=== PATIENT | female | born 1960 | race Caucasian/White ===

== ENCOUNTER → 2016-07-02 16:21 | Outpatient (CLI) | payer OTHER ==
[2015-01-04 07:51] VITALS: BMI 30.3
[~2016-07-02 16:21] MED LIST: DILAUDID2 MG PO; OMEPRAZOLE40 MG PO; PEPCID40 MG PO
== END | disposition home or self-care (01) ==
LOC: D.MAMMO 08:30
DX: N64.4 Mastodynia (principal)

== ENCOUNTER → 2016-08-09 07:28 | Outpatient (CLI) | payer MEDICAID ==
[2015-01-04 07:51] VITALS: BMI 30.3
== END | disposition home or self-care (01) ==
LOC: D.CT 07:28
DX: R05 Cough (principal); R07.9 Chest pain, unspecified

== ENCOUNTER → 2017-05-24 07:43 | Outpatient (CLI) | payer MEDICAID ==
[2015-01-04 07:51] VITALS: BMI 30.3
== END | disposition home or self-care (01) ==
LOC: D.RT 07:43
DX: R91.1 Solitary pulmonary nodule (principal); J44.9 Chronic obstructive pulmonary disease, unspecified

== ENCOUNTER → 2017-11-19 08:39 | Outpatient (CLI) | payer MEDICAID ==
[2015-01-04 07:51] VITALS: BMI 30.3
== END | disposition home or self-care (01) ==
LOC: D.RT 08:39
DX: R91.1 Solitary pulmonary nodule (principal)

== ENCOUNTER → 2018-01-09 08:36 | Outpatient (CLI) | payer MEDICAID ==
[2015-01-04 07:51] VITALS: BMI 30.3
== END | disposition home or self-care (01) ==
LOC: D.MRI 08:00
DX: M54.5 Low back pain (principal)

== ENCOUNTER → 2018-02-11 16:34 | Outpatient (CLI) | payer MEDICAID ==
[2015-01-04 07:51] VITALS: BMI 30.3
== END | disposition home or self-care (01) ==
LOC: D.MAMMO 02-04 09:30
DX: Z12.31 Encounter for screening mammogram for malignant neoplasm of breast (principal)

== ENCOUNTER → 2018-11-28 11:31 | Outpatient (CLI) | payer MEDICAID ==
[2015-01-04 07:51] VITALS: BMI 30.3
[~2018-11-28 11:31] MED LIST changes: +CRESTOR10 MG PO; +CYMBALTA60 MG PO; +FLUTICASONE PRO16 GM NASAL; +HYDROCODONE-A1 UDTA2 PO; +PERCOCET 10-321 EAC1 PO; +SYMBICORT 16010.2 GM INH; +VOLTAREN100 GM TOPICAL
== END | disposition home or self-care (01) ==
LOC: D.HCCECHO 11:30
PROVIDERS: ATTEND Internal Medicine Interventional Cardiology
DX: I20.9 Angina pectoris, unspecified (principal)

== ENCOUNTER → 2018-12-01 11:43 | Outpatient (CLI) | payer MEDICAID ==
[2015-01-04 07:51] VITALS: BMI 30.3
--- NOTE | 2018-12-11 13:30 | ST ---
PATIENT:CHAPINCITO PHILLIPS MEDICAL RECORD: [id number] SEX: F LOCATION:[facility] ORDER #: ADMISSION DATE: 12/01/18 AGE OF PATIENT: 58 REFERRING PHYSICIAN: INTERPRETING PHYSICIAN: MERLYN ANTONIO MD DATE OF SERVICE: 12/01/2018 Nuclear stress test. INDICATION: Angina, abnormal ECG, hyperlipidemia, smoking history. TECHNIQUE: The patient was exercised on standard Lexiscan protocol with 33 mCi of sestamibi injected at peak stress, 11 mCi used previously for rest images. FINDINGS: Gated SPECT reveals preserved ejection fraction at 72% with good wall motioning and thickening and brightening throughout all segments. SPECT imaging Cardiolite was used as myocardial perfusion agent. There is reversibility anteriorly and apically. This includes the basal, mid, apical anterior segments as well as the entire apex itself. The degree of reversibility is moderate. The amount of myocardial involved is moderate to large. OVERALL IMPRESSION: This is an intermediate to high risk nuclear stress test with a oztttent-qz-[id number] amount of myocardium involved with ischemia anteriorly and apically suggestive of hemodynamically significant coronary artery disease. TRANSINT:[id number] Voice Confirmation ID: [id number] DOCUMENT ID: [id number] MERLYN ANTONIO MD at 1330 CC: PETAR MUNOZ MD [id number] DICTATION DATE: 12/03/18 1207 IRONWORKER HELPER SHOP: 12/04/18 0704 DEP CLI 12/01/18 [facility] [address] [place] [address]
== END | disposition home or self-care (01) ==
LOC: D.HCCARDIO 11:43
PROVIDERS: ATTEND Internal Medicine Interventional Cardiology
DX: I20.9 Angina pectoris, unspecified (principal)

== ENCOUNTER 2018-12-02 07:44 | Day surgery (SDC) | payer MEDICAID ==
[~2018-12-02] VITALS: Ht 165.1 cm; Wt 76.2 kg
[~2018-12-02 07:44] MED LIST changes: -PERCOCET 10-321 EAC1 PO
[2018-12-02 08:03] LABS: HEMATOCRIT 39.4 % (36.0-48.0); HEMOGLOBIN 13.2 g/dL (12-16); MCH 31.1 pg (26.0-34.0); MCHC 33.5 g/dL (31.0-37.0); MCV 92.9 fL (80.0-100.0); MEAN PLATELET VOLUME 10.4 fL (7.4-10.4); RBC 4.24 10x6/uL (4.00-5.40); RDW 13.5 % (11.5-14.5); WBC 5.9 10x3/uL (4.8-10.8)
[2018-12-02 08:43] VITALS: BP 122/70; Ht 165.1 cm; Wt 76.2 kg
--- NOTE | 2018-12-02 09:43 | NUR ---
0900 SPOKE WITH SARA WITH [facility] AND PT. STATES WHEN SHE WAS 14 SHE HAD A THOUGHT OF HARMING HERSELF BUT DID NOT DO ANYTHING ABOUT IT AND HAS NOT SINCE, THEN. SHE STATES SHE WILL SPEAK WITH HER PEOPLE BUT PT IS OKAY FOR SURGERY AND WILL NOT BE DELAYED FOR SURGERY TODAY.
[2018-12-02] MEDS ORDERED: PERCOCET 10-321 EAC1 PO (11:10)
--- NOTE | 2018-12-02 11:18 | NUR ---
1115 DR. SOTO ROUNDS WITH FAMILY.
--- NOTE | 2018-12-02 12:37 | NUR ---
DR. KAMARA NOTIFIED AND REVIEWED PT'S BEHAVIOR AND ASSESSMENT RESULTS. PT IS A LOW RISK PER DR. KAMARA. DR. KAMARA STATED TO GIVE RESOURCES TO PT AT TIME OF DISCHARGE. NO FURTHER ORDERS AT THIS TIME. RESOURCES REVIEWED WITH PT AND SHE VERBALIZED UNDERSTANDING.
--- NOTE | 2018-12-02 13:42 | OP ---
PATIENT NAME: CHAPINCITO PHILLIPS MEDICAL RECORD: [id number] :62 LOCATION:[facility] ADMISSION DATE: SURGEON: KODAK SOTO DO DATE OF OPERATION: 12/02/2018 PROCEDURE PERFORMED: Left knee lysis of adhesions and manipulation under anesthesia. 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 POSTOPERATIVE DIAGNOSIS: Left knee contracture after a patellar fracture. INDICATIONS: Ms. Phillips had a patellar fracture approximately 9 to 10 months ago. She was treated at another hospital. She did not do therapy and developed a knee contracture. She could only flex to about 60 to 70 degrees. She went through several rounds of therapy with no avail and she wants something done. I told her we can do it through the scope, I would hope, and take down the adhesions and that she was at risk for fracture, tearing of the tendons, patellar tendon and the quad tendon, and need for further surgery, and that she would have to work very hard to keep the motion. She was aware of that and aware of the risk of infection, bleeding, damage to nerves and vessels, need for further surgery, blood clots, and even and she signed the consent. SURGEON: Kodak Soto DO DESCRIPTION OF PROCEDURE: The patient was taken to operative suite, laid in supine position, given general anesthetic and LMA was placed. Left lower extremity was prepped and draped in sterile fashion, given 2 grams Ancef preoperatively. The timeout had been performed. Everyone was in agreeance with the correct side, site, patient and procedure. The incision was then was made over the lateral portal in the anterior knee. The knee was entered with a trocar and then the camera entered and severe adhesions were noted in the suprapatellar pouch as well as along the patellar tendon on the back of the fat pad and on the inferior portion of the patella. The lateral gutter was inspected. Medial gutter inspected. No loose body seen in it. The medial compartment was then entered and the medial portal was established with an 18-gauge spinal needle and 11-blade scalpel. 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 The adhesions were seen to extend from the medial femoral condyle, soft tissue over to the patellar tendon or at the fat pad. The shaver was brought in and these were taken down as well as the burner was used to take more adhesions down and the shaver in the suprapatellar pouch. Once the adhesions were adequately resected, abrasion chondroplasty was performed on the patella and the medial femoral condyle. The knee was manipulated, so I could get a good release. She was only flexed to 60 degrees and I got her to flex to 125 degrees and held it. Then, entered back in the knee with the camera and took down any other adhesions that I saw. The water was turned off and the suction was turned on at that time and the knee was again manipulated back to 125 degrees. The portals were closed with 4-0 Monocryl in inverted interrupted fashion. Steri-Strips, Adaptic, 4 x 4's, ABD, Webril, Jarett wrap were then placed on the knee, GIL hose stockings up to the knee. She was awakened and taken to recovery in stable condition. BLOOD LOSS: Minimal. OPERATIVE REPORT [id number] CHAPINCITO PHILLIPS COMPLICATIONS: None. TRANSINT:[id number] Voice Confirmation ID: [id number] DOCUMENT ID: [id number] KODAK SOTO DO at 1342 CC: [id number] DICTATION DATE: 12/02/18 1108 VP PRODUCT MARKETING: 12/02/18 1314 REG [facility] [address] [place] [address]
== END 2018-12-02 13:44 | disposition home or self-care (01) ==
LOC: D.OPS 07:44
PROVIDERS: Anesthesiology; ATTEND Orthopaedic Surgery
DX: M24.562 Contracture, left knee (principal)

== ENCOUNTER 2018-12-11 11:37 | Outpatient (CLI) | payer MEDICAID ==
[~2018-12-11] VITALS: Ht 165.1 cm; Wt 84.1 kg
--- NOTE | ~2018-12-11 | HEMODYNAMI ---
PATIENT:CHAPINCITO PHILLIPS MEDICAL RECORD: [id number] : 62 LOCATION:[facility] ADMISSION DATE: 12/11/18 Generatedon:12/11/201816:33 Patient name: CHAPINCITO PHILLIPS Patient #: [id number] : 1960 Date of study: 12/11/2018 Page: Of Hemodynamic Procedure Report Patient Data Patient Demographics Procedure consent was obtained First Name: CHAPINCITO Gender: Female Last Name: ALAN : 1960 Middle Initial: C Age: 58 year(s) Patient #: [id number] Race: Unknown SSN: [id number] Additional ID: [id number] Contact details [address]: [address] [place] [address] State: [place] City: [place] Zip code: [address] Admission Admission Data Admission Date: 12/11/2018 Admission Time: 11:37 Height (in.): 65 BSA: 1.91 (m2) Height (cm.): 165.1 BMI: 30.79 (kg/m2) Weight (lbs.): 185 Weight (kg.): 83.91 Lab Results Lab Result Date: 12/11/2018 Lab Result Time: 0:00 Biochemistry Name Units Result Min Max BUN mg/dl 8 --(*---)-- 7 18 Creatinine mg/dl 0.8 --(-*--)-- 0.6 1.3 eGFR ml/min 78 *-(----)-- 90 120 NONAFRICAN CBC Name Units Result Min Max Hemoglobin g/dl 13.5 --(*---)-- 13.5 17.5 Procedure Procedure Types Cath Procedure Diagnostic Procedure [facility] w/Coronaries Procedure Description Procedure Date Procedure Date: 12/11/2018 Procedure Start Time: 16:21 Procedure End Time: 16:32 Procedure Staff Name Function Diego Calvillo MD Performing Physician Daniel Damian RT Monitor Dariel Martinez RN Nurse Haley Torres RT Scrub Procedure Data Cath Procedure Fluoroscopy Diagnostic fluoroscopy Total fluoroscopy Time: 2.4 time: 2.4 min min Diagnostic fluoroscopy Total fluoroscopy dose: 275 dose: 275 mGy mGy Contrast Material Contrast Material Type Amount (ml) Isovue 300 34 Entry Location Entry Primary Successful Side Size Upsize Upsize Entry Closure Rico ccessful Closure Location (Fr) 1 (Fr) 2 (Fr) Remarks Device Remarks Radial Right 6 Fr Mechanical artery Short Compression Estimated blood loss: 10 ml Diagnostic catheters Device Type Used For End Catheter Placement DIAGNOSTIC Cameron 110cm 5 Procedure Fr catheter ([id number]) Procedure Complications No complications Procedure Medications Medication Administration Route Dosage 0.9% NaCl I.V. 100 ml/hr Oxygen etCO2 Nasal cannula 2 l/min Heparin Flush Bag added to field 2 bags (1000units/500ml NS) Lidocaine 2% added to field 20 Radial Cocktail added to field 1 syringe (Verapamil 2mg/Nitro 400mcg/Heparin 1500units) Versed I.V. 2 mg Fentanyl I.V. 100 mcg Versed I.V. 2 mg Radial Cocktail I.A. 1 syringe (Verapamil 2mg/Nitro 400mcg/Heparin 1500units) Hemodynamics Rest BSA: 1.91 (m2) HGB: 13.5 (g/dl) O2 Consumption: Estimated: 188.12 (ml/min) O2 Co nsumption indexed: Estimated:98.49 (ml/min/m) Heart Rate: 77 (bpm) Pressure Samples Time Site Value (mmHg) Purpose Heart Use Rate(bpm) 16:27 AO 107/69(79) Snapshot 88 16:28 LV 102/3,7 Snapshot 88 16:28 AO 114/52(79) Pullback 92 16:28 LV 90/8,13 Pullback 92 Gradients Valve Time Site 1 Site 2 Mean SEP/DFP Peak To Heart Use (mmHg) (sec/min) Peak Rate (mmHg) (bpm) Aortic 16:28 LV AO 0 10 0 92 90/8,13 114/52(79) Calculations Valve P-P Mean Valve Index Valve Source Name Gradient Area Flow (cm2) Aortic 0 0 0 0 Snapshots Pre Cath Intra NCS Post Cath Vital Signs Time Heart Resp SPO2 etCO2 NIBP Rhythm Pain Sedation Rate (ipm) (%) (mmHg) (mmHg) Status Level (bpm) 16:05:54 80 18 92 0 118/76(93) NSR 0 (11) 10(A) , No pain 16:10:04 79 18 95 45.4 119/75(97) NSR 0 (11) 10(A) , No pain 16:14:14 80 19 93 44.7 121/78(99) NSR 0 (11) 10(A) , No pain 16:18:23 80 11 93 43.2 117/71(99) NSR 0 (11) 10(A) , No pain 16:22:29 78 18 94 43.9 110/77(98) NSR 0 (11) 9(A) , No pain 16:26:33 88 13 93 43.9 114/74(88) NSR 0 (11) 9(A) , No pain 16:30:41 86 10 92 46.2 116/73(97) NSR 0 (11) 10(A) , No pain Medications Time Medication Route Dose Verified Delivered Reason Notes Effectiveness by by 16:04:04 0.9% NaCl I.V. 100 Dariel Dariel Per ml/hr Juan Martinez physician RN RN 16:04:15 Oxygen etCO2 2 l/min Dariel Dariel for low 02 Nasal Lorigan Lorena sats cannula RN RN 16:04:25 Heparin Flush added 2 bags Dariel Dariel used for Bag to Juan Martinez procedure (1000units/500ml RN RN NS) 16:04:36 Lidocaine 2% added 20ml Dariel Dariel for local to vial Lorena Martinez anesthetic field HARRISON RN 16:04:46 Radial Cocktail added 1 Dariel Dariel used for (Verapamil to syringe Lalaigan Juan procedure 2mg/Nitro field HARRISON RN 400mcg/Heparin 1500units) 16:14:50 Versed I.V. 2 mg Dariel Dariel for sedation Juan Martinez RN RN 16:14:59 Fentanyl I.V. 100 mcg Dariel Dariel for sedation Juan Martinez RN RN 16:22:38 Versed I.V. 2 mg Dariel Dariel for sedation Juan Martinez RN RN 16:24:30 Radial Cocktail I.A. 1 Dariel Diego for (Verapamil syringe [facility] [place] vasodilation 2mg/Nitro CHRISTY ABAD 400mcg/Heparin 1500units) Procedure Log Time Note 15:40:41 Dariel Martinez RN sent for patient. Start room use. 15:46:38 Procedure Status Elective Heart Cath (OP). 15:46:44 Time tracking: Regular hours (M-F 7:00 - 5:00) 15:46:49 Plan of Care:Hemodynamics will remain stable., Cardiac rhythm will remain stable., Comfort level will be maintained., Respiratory function will remain adequate., Patient/ family verbilizes understanding of procedure., Procedure tolerated without complication., Recovers from procedure without complications.. 15:55:00 Patient received from Pre/Post Procedure Room to CCL 1 Alert and oriented. Tansferred to table in Supine position. 15:55:04 Signed procedure consent form obtained from patient. 15:55:05 Warm blankets applied, and jack hugger turned on for patient comfort. 15:55:05 Correct patient and procedure confirmed by team. 15:55:06 ECG and BP/O2 sat monitors applied to patient. 16:04:04 0.9% NaCl 100 ml/hr I.V. was administered by Dariel Martinez RN; Per physician; Verbal order read back and verified. 16:04:15 Oxygen 2 l/min etCO2 Nasal cannula was administered by Dariel Martinez RN; for low 02 sats; Verbal order read back and verified. 16:04:25 Heparin Flush Bag (1000units/500ml NS) 2 bags added to field was administered by Dariel Martinez RN; used for procedure; Verbal order read back and verified. 16:04:36 Lidocaine 2% 20ml vial added to field was administered by Dariel Martinez RN; for local anesthetic; Verbal order read back and verified. 16:04:46 Radial Cocktail (Verapamil 2mg/Nitro 400mcg/Heparin 1500units) 1 syringe added to field was administered by Dariel Martinez RN; used for procedure; Verbal order read back and verified. 16:04:53 Vital chart was started 16:06:46 Baseline sample Acquired. 16:06:51 Rhythm: sinus rhythm 16:06:52 Full Disclosure recording started 16:06:57 H&P Date Dictated: 12/11/2018 Within 30 days and on chart., H&P Addendum completed by physician on day of procedure. (MUST COMPLETE FOR ALL OUTPATIENTS). 16:07:29 Pre-procedure instructions explained to patient. 16:07:30 Pre-op teaching completed and patient verbalized understanding. 16:07:34 Family in waiting room. 16:07:36 Patient NPO since Midnight. 16:07:38 Is the patient allergic to Iodine/contrast media? No. 16:07:40 Is patient on blood thinner?No 16:07:46 ACC The patient was administered the following blood thiners within the last 24 hours: None 16:07:54 Patient diabetic? No. 16:07:58 Previous problem with sedation/anesthesia? No ? 16:08:00 Snore? Yes 16:08:02 Sleep apnea? No 16:08:02 Deviated septum? No 16:08:03 Opens mouth fully? Yes 16:08:04 Sticks out tongue? Yes 16:08:06 Airway obstruction? No ? 16:08:10 Dentures? Yes OUT 16:08:14 Pre procedure: right dorsailis pedis pulse 1+ Palpable, but thready & weak; easily obliterated 16:08:16 Modified Parvez's test Ulnar < 7 seconds 16:08:17 Patient pain scale 0/10 ?. 16:08:37 IV patent on arrival in right forearm with 0.9% NaCl at [facility]. 16:08:39 Lab results completed and on chart. 16:08:42 Right Radial & Right Groin area was prepped with chlora-prep and draped in sterile fashion 16:08:44 Alarms reviewed by R. N. 16:08:45 Sharps counted by scrub and verified by R.N. 16:09:27 Use device set Radial Dx or PCI 16:09:29 Tegaderm 4 x 4 (1626W) opened to sterile field. 16:09:30 ACIST Syringe (45711) opened to sterile field. 16:09:30 Medline Cath Pack ([id number]) opened to sterile field. 16:09:31 Bag Decanter (2002) opened to sterile field. 16:09:31 ACIST Hand Control (95007) opened to sterile field. 16:09:31 ACIST Manifold (47023) opened to sterile field. 16:09:32 MBrace Wrist Support ([id number]) opened to sterile field. 16:09:34 EMERALD Guide Wire (437-517) opened to sterile field. 16:09:34 SHEATH 6FR RAIN (9349808) opened to sterile field. 16:09:54 Patient Weight : 185 lbs 16:09:59 Patient Height : 65 inches 16::39 Lab Result : BUN 8 mg/dl ::39 Lab Result : Hemoglobin 13.5 g/dl 16::39 Lab Result : eGFR NONAFRICAN 78 ml/min 16::39 Lab Result : Creatinine 0.8 mg/dl 16:13:19 2) 60-89 Mildly reduced kidney function, and other findings (as for stage 1) point to kidney disease. 16:13:48 Maximum allowable contrast dose (3.7 X eGFR X 0.75)217 ml. 16:13:53 --------ALL STOP TIME OUT------ 16::54 Final Timeout: patient, procedure, and site verified with staff and physician. All members of the team are in agreement. 16:13:58 Right Radial & Right Groin site verified by team. 16:14:02 Fire Safety Assessment: A--An alcohol-based skin anteseptic being used preoperatively., C--Open oxygen or nitrous oxide is being used., D--An ESU, laser, or fiber-optic light is being used. 16:14:05 Physical assessment completed. ASA score P 2 - A patient with mild systemic disease as per Diego Calvillo MD. 16:14:50 Versed 2 mg I.V. was administered by Dariel Martinez RN; for sedation; Verbal order read back and verified. 16:14:59 Fentanyl 100 mcg I.V. was administered by Dariel Martinez RN; for sedation; Verbal order read back and verified. 16:21:20 Procedure started. 16:21:36 Local anesthetic to right radial artery with Lidocaine 2% by Diego Calvillo MD.INITIAL ACCESS ONLY 16:22:38 Versed 2 mg I.V. was administered by Dariel Martinez RN; for sedation; Verbal order read back and verified. 16:23:52 A 6 Fr Short sheath was inserted into the Right Radial artery 16:24:30 Radial Cocktail (Verapamil 2mg/Nitro 400mcg/Heparin 1500units) 1 syringe I.A. was administered by Diego Calvillo MD; for vasodilation; Verbal order read back and verified. 16:24:44 A DIAGNOSTIC Cameron 110cm 5 Fr catheter (601058) was advanced over the wire and used for Procedure. 16:27:14 LCA angiography performed. 16:27:31 RCA angiography performed. 16::53 ACCDominant side:Right 16:28:53 LV angiography performed. 16:28:55 LV gram done using MARSHALL 16:29:04 EF : 55 % 16:29:06 LV hemodynamics recorded. 16:29:10 Injector settings: Ml/sec: 5, Volume: 15, 16:29:20 Catheter removed. 16:29:23 ZEPHYR REGULAR TR BAND (116473) opened to sterile field. 16:29:37 Sheath removed intact; hemostasis achieved with Mechanical Compression to the Right Radial artery. 16:29:39 Procedure ended.(Physican Out) 16:30:21 Fluoroscopy time 02.40 minutes. 16:30:26 Flurop Dose total: 275 16:30:26 Fluoroscopy dose: 275 mGy 16:30:32 Dose Area Product 67881 mGy/cm. 16:30:41 Contrast amount:Isovue 300 34ml. 16:30:43 Maximum allowable dose exceeded? No. 16:30:44 Sharps counted by scrub and verified by R.N. 16:30:52 Jasper band inflated with 10cc of air. 16:30:54 Insertion/operative site no bleeding no hematoma. 16:30:59 Post Procedure Pulses reassessed and unchanged 16:31:02 Post-procedure physical assessment completed. ASA score P 2 - A patient with mild systemic disease as per Diego Calvillo MD. 16:31:04 Post procedure rhythm: unchanged. 16:31:07 Estimated blood loss: 10 ml 16:31:09 Post procedure instruction explained to patient.Patient verbalizes understanding. 16:31:10 Patient needs reinforcement of post procedure teaching. 16:31:38 Procedure and supply charges have been captured, reviewed, submitted and are correct. 16:31:40 Procedure Complication : No complications 16:31:58 Vital chart was stopped 16:32:02 [facility] Findings: mild to moderate CAD (<70%) 16:32:05 Operative report dictated upon procedure completion. 16:32:05 See physician's report for complete and final results. 16:32:09 Report given to Pre/Post Procedure Room. 16:32:13 Patient transfered to Pre/Post Procedure Room with Stretcher. 16:32:15 Procedure ended. 16:32:15 Full Disclosure recording stopped 16:33:29 End room use (Document Last) Device Usage Item Name Manufacture Quantity Catalog Hospital Part Current Minima l Lot# / Number Charge Number Stock Stock Serial# Code Tegaderm 4 3M 1 1626W [id number] 193886 5 x 4 (1626W) ACIST Acist 1 43660 002635 551559 [id number] 20 Syringe Medical (76982) Systems Inc Medline Medline 1 [id number] 669507 46025 156762 5 Cath Pack ([id number]) Bag Microtek 1 2001S 398978 33560 328627 5 Decanter Medical Inc. (2001S) ACIST Hand Acist 1 86243 990429 277573 694960 5 Control Medical (43410) Systems Inc ACIST Acist 1 78529 734770 814811 777167 5 Manifold Medical (34046) Systems Inc MBrace Advanced 1 [id number] 689482 06811 851338 5 Wrist Vascular Support Dynamics ([id number]) EMERALD Cardinal 1 502-455 566727 299655 345165 5 Guide Wire Health (502455) SHEATH 6FR Cardinal 1 [id number] 152220 9539080 841232 5 [facility] Health (9844591) DIAGNOSTIC Terumo 1 403 597227 868498 668013 5 Cameron 110cm 5 Fr catheter (286324) ZEPHYR Cardinal 1 393122 670067 8539932 798000 5 REGULAR TR Health BAND (881507) Signature Audit [place] Stage Time Signature Unsigned Intra-Procedure 12/11/2018 Daniel Damian 4:32:53 PM RT(R) Intra-Procedure 12/11/2018 Dariel 4:33:21 PM Juan HARRISON Intra-Procedure 12/11/2018 Diego Etienne 4:33:[address] [facility] [address] [place] [address]
[~2018-12-11 11:37] MED LIST changes: +PERCOCET 10-321 EAC1 PO
[2018-12-11] MEDS ORDERED: HYDROCODONE-A1 UDTA2 PO (11:59)
[2018-12-11 12:21] VITALS: BP 119/80; Ht 165.1 cm; Wt 84.1 kg
[2018-12-11 12:27] LABS: BASOPHILS 0.2 % (0-2); HEMATOCRIT 40.9 % (36.0-48.0); HEMOGLOBIN 13.5 g/dL (12-16); IMMATURE GRANULOCYTES 0.2 % (0-5); LYMPHOCYTES 22.2 % (15-50); MCV 93.8 fL (80.0-100.0); MEAN PLATELET VOLUME 10.4 fL (7.4-10.4); MONOCYTES 7.4 % (2-11); PLATELET COUNT 204 10x3/uL (130-400); RBC 4.36 10x6/uL (4.00-5.40); RDW 13.8 % (11.5-14.5); WBC 6.4 10x3/uL (4.8-10.8)
[2018-12-11 12:38] LABS: CALC OSMOLALITY 279 mosm/kg (275-300); CALCIUM 8.5 mg/dL (8.5-10.1); CARBON DIOXIDE 29.9 mmol/L (21.0-32.0); CHLORIDE - SERUM 103 mmol/L (98-107); CHOL - HDL RATIO 3.4 ratio (2.3-4.1); CHOLESTEROL, TOTAL 189 mg/dL (0-200); CREATININE - SERUM 0.8 mg/dL (0.6-1.3); GLUCOSE 109 mg/dL (74-106); HDL CHOLESTEROL 55 mg/dL (32-96); LDL CHOLESTEROL 108 mg/dL (0-100); SODIUM 141 mmol/L (136-145); TRIGLYCERIDE 131 mg/dL (30-200); UREA NITROGEN 8 mg/dL (7-18); eGFR NON AFRICAN AMERICAN 78 mL/min (90-120)
--- NOTE | 2018-12-11 17:03 | NUR ---
PT SITTING UP IN BED, EATING SANDWICH AND SIPPING PO FLUIDS. Z BAND IS CDI, FINGERS WARM AND PULSE PALPABLE. NSR, RATE 77, BP IS 108/77. SIGNIFICANT OTHER AT BEDSIDE, DR MCKEON HAS ROUNDED.
--- NOTE | 2018-12-11 17:16 | NUR ---
Z BAND IS CDI, FINGERS WARM AND CAP REFILL IS BRISK. PULSES PALPABLE. PT IS ALERT, NICK SANDWICH WITH NO NAUSEA. VSS, NSR, RATE IS 76. CALL LIGHT IN REACH.
--- NOTE | 2018-12-11 17:33 | NUR ---
2 CC OF AIR WEANED FROM Z BAND WITH NO BLEEDING NOTED. RADIAL PULSE PALPABLE. PT ALERT AND DENIES ANY C/O. VSS.
--- NOTE | 2018-12-11 18:06 | NUR ---
1747 3 CC OF AIR WEANED FROM Z BAND WITH NO BLEEDING NOTED. PULSES PALPABLE, FINGERS WARM.
--- NOTE | 2018-12-11 18:21 | NUR ---
1808 ALL REMAINING AIR WEANED FROM Z BAND, BAND REMVOED AND 2X2, TEGADERM PLACED TO SITE. WRIST IMMOBILIZER IN PLACE. PULSES PALPABLE. 1820 DC INSTRUCTIONS HAVE BEEN REVIEWED WITH PT AND SIGNIFICANT OTHER. DRESSING REMAINS CDI RIGHT WRIST, PULSES PALPAPBLE, PT DENIES ANY NV DEFICIT TO HAND. PT DRESSING WITH ASSIST FOR DC TO HOME.
--- NOTE | 2018-12-11 18:42 | NUR ---
1840 PT HAS DRESSED FOR DC. ASSISTED PT TO THE BATHROOM USING WC AND PT HAS VOIDED QS. DRESSING REMAINS CDI RIGHT WRIST, PULSE PALAPBLE, PT DENIES ANY NV DEFICIT TO HAND. PT ESCORTED TO PRIVATE AUTO VIA WC BY NURSE WITH SIGNIFICANT OTHER DRIVING HER HOME. PT HAS ALL PERSONAL BELONGINGS INCLUDING GLASSES, CELL PHONE AND KNEE BRACE, AND DC INSTRUCTIONS UPON DISCHARGE, IS ALERT AND DENIES ANY C/O.
--- NOTE | 2018-12-15 13:29 | OP ---
PATIENT NAME: CHAPINCITO PHILLIPS MEDICAL RECORD: [id number] :62 LOCATION:D.CAT ADMISSION DATE: SURGEON: BERHANE MCKEON MD DATE OF OPERATION: 12/11/2018 PROCEDURE: Left heart catheterization, selective coronary angiography, and right radial approach. CATHETERS: Radial sheath, Alger catheter. The procedure was well tolerated. The patient returned to hernández. Sheath was removed. TR band was placed. FINDINGS: Left ventriculography in 30-degree MARSHALL view: Normal wall motion and normal systolic function. CORONARY ANATOMY: LEFT MAIN: Left main is free of disease. LAD: Free of disease in the diagonal system. CIRCUMFLEX: Free of disease in the marginal system. RIGHT CORONARY ARTERY: Dominant artery, gives rise to PDA, free of disease. IMPRESSION: Normal LV systolic function. Normal coronary anatomy. TRANSINT:[id number] Voice Confirmation ID: [id number] DOCUMENT ID: [id number] BERHANE MCKEON MD at 1329 CC: [id number] DICTATION DATE: 12/11/18 1634 ROUND CORNER CUTTER OPERATOR: 12/12/18 0009 DEP CLI 12/11/18 [place] [id number] [place] [address]
== END 2018-12-11 18:40 | disposition home or self-care (01) ==
LOC: D.CATH 11:37
PROVIDERS: ATTEND Internal Medicine Interventional Cardiology
DX: I20.0 Unstable angina (principal); R94.30 Abnormal result of cardiovascular function study, unspecified

== ENCOUNTER 2019-05-08 10:32 | Day surgery (SDC) | payer MEDICAID ==
[~2019-05-08] VITALS: Ht 165.1 cm; Wt 55.3 kg
[2019-05-08 10:50] LABS: HEMATOCRIT 41.9 % (36.0-48.0); HEMOGLOBIN 13.8 g/dL (12-16); MCH 30.5 pg (26.0-34.0); MCHC 32.9 g/dL (31.0-37.0); MCV 92.7 fL (80.0-100.0); MEAN PLATELET VOLUME 10.2 fL (7.4-10.4); RBC 4.52 10x6/uL (4.00-5.40); RDW 13.8 % (11.5-14.5); WBC 6.2 10x3/uL (4.8-10.8)
[2019-05-08 13:33] VITALS: BP 122/71; Ht 165.1 cm; Wt 55.3 kg
[2019-05-08] MEDS ORDERED: PERCOCET 10-321 EAC1 PO (16:28)
--- NOTE | 2019-05-08 16:52 | NUR ---
1647 - PT AWAKENING, OPA REMOVED
--- NOTE | 2019-05-09 06:23 | OP ---
PATIENT NAME: CHAPINCITO PHILLIPS MEDICAL RECORD: [id number] :62 LOCATION:[facility] ADMISSION DATE: SURGEON: KODAK SOTO DO DATE OF OPERATION: 05/08/2019 PROCEDURE PERFORMED: Right knee arthroscopy with partial medial meniscectomy. PREOPERATIVE DIAGNOSIS: Right knee medial meniscal tear and grade III chondromalacia of the medial femoral condyle. POSTOPERATIVE DIAGNOSIS: Right knee medial meniscal tear and grade III chondromalacia of the medial femoral condyle. INDICATIONS: Ms. Phillips is a 58-year-old female who has had right knee pain for quite some time. An MRI was done and it showed a medial meniscal tear in the posterior horn of the medial meniscus. She did have some chondromalacia, but was not full thickness cartilage damage. I informed her we can trim out the meniscus and hopefully help her with her symptoms with catching, popping and locking and she is aware of the risks including infection, bleeding, damage to nerves and vessels, need for further surgery, retear of the meniscus, and continued pain. I told her I could not get rid of the arthritic pain, but could help with the catching. She was aware of that and informed of the risks and benefits of the procedure and signed a consent. She is also aware of the risk of blood clots and infection. SURGEON: Kodak Soto DO DESCRIPTION OF PROCEDURE: The patient was taken to the operative suite, laid in supine position, given general anesthetic, given 900 mg of clindamycin preoperatively. The right lower extremity was then prepped and draped in sterile fashion. Timeout was performed, everyone was in agreeance with correct side, site, patient and procedure. The right knee was then injected at anterior, lateral, and medial portal sites with a 2.5 mL of 0.25% Marcaine with epinephrine in each site. I then used an 11-blade scalpel to establish the lateral portal. The trocar was entered into the knee and the suprapatellar pouch was inspected. No loose bodies seen in the medial or lateral gutters. The knee was then flexed and medial compartment was entered. A loose body was seen of cartilage. An 18-gauge spinal needle was then used to establish a medial portal with an 11-blade scalpel. Shaver was brought in to remove the loose body. I then used a probe to probe the medial meniscus and it was seen to be torn in the posterior horn. I then used a shaver and biter to trim it back to a stable point where it is in line with the torn. Once that was completed, the ACL was probed and seen to be in good position. The lateral compartment was inspected and cartilage was in good repair as well as the meniscus. I then inspected the trochlea and there was grade II-III chondromalacia of the patella, but not the trochlea. I then turned the water off and suction on and removed excess fluid from the knee. The portal sites were then closed by Brent Palacios, certified surgical technical assistance consultant, with 4-0 Monocryl in an inverted interrupted fashion. Steri-Strips, Adaptic, 4 x 4's, ABD, Webril, Jarett wrap and GIL hose stocking was then placed on the patient. She was awakened and taken to recovery in stable condition. BLOOD LOSS: Minimal. COMPLICATIONS: None. OPERATIVE REPORT [id number] CHAPINCITO PHILLIPS TRANSINT:[id number] Voice Confirmation ID: [id number] DOCUMENT ID: [id number] KODAK SOTO DO at 0623 CC: [id number] DICTATION DATE: 05/08/19 1631 PUTTY WORKER: 05/08/19 2243 [facility] 05/08/19 [id number] [place] [address]
== END 2019-05-08 18:40 | disposition home or self-care (01) ==
LOC: D.OPS 10:32 → D.PAN 12:45 → D.OPS 13:00 → D.PAN 13:00 → D.OPS 15:45 → D.PAN 15:45 → D.OPS 18:40 → D.PAN 05-15 07:45 → D.OPS 05-15 07:45
PROVIDERS: Anesthesiology; ATTEND Orthopaedic Surgery
DX: S83.241A Other tear of medial meniscus, current injury, right knee, initial encounter (principal); M22.42 Chondromalacia patellae, left knee; K21.9 Gastro-esophageal reflux disease without esophagitis; X58.XXXA Exposure to other specified factors, initial encounter

== ENCOUNTER 2019-06-18 14:18 | Inpatient (IN) | payer OTHER ==
[~2019-06-18] VITALS: Ht 165.1 cm; Wt 81.8 kg
[2019-07-21] MEDS ORDERED: BUPROPION HCL150 M1 PO (15:21)
[2019-07-21] MEDS ORDERED: LIPITOR20 MG PO (15:25)
[2019-07-21] MEDS ORDERED: norco PO (15:37)
[2019-07-22] MEDS ORDERED: VITAMIN D (11:01)
[2019-07-22 12:10] LABS: ANION GAP 9.1 mmol/L (8-16); CALCIUM 8.8 mg/dL (8.5-10.1); CARBON DIOXIDE 31.6 mmol/L (21.0-32.0); CREATININE - SERUM 0.9 mg/dL (0.6-1.3); POTASSIUM - SERUM 3.7 mmol/L (3.5-5.1)
[2019-07-22 12:26] LABS: INR 0.89 (0.85-1.17)
[2019-07-22 12:58] LABS: BILIRUBIN NEGATIVE (NEGATIVE); GLUCOSE NEGATIVE (NEGATIVE); KETONE NEGATIVE (NEGATIVE); NITRITE NEGATIVE (NEGATIVE); UROBILINOGEN NORMAL (NORMAL)
[2019-07-22 13:13] LABS: BASOPHILS 0.2 % (0-2); EOSINOPHILS 1.5 % (0-7); HEMATOCRIT 44.1 % (36.0-48.0); HEMOGLOBIN 14.1 g/dL (12-16); IMMATURE GRANULOCYTES 0.2 % (0-5); LYMPHOCYTES 21.3 % (15-50); MCH 30.5 pg (26.0-34.0); MCV 95.5 fL (80.0-100.0); MEAN PLATELET VOLUME 10.4 fL (7.4-10.4); MONOCYTES 9.5 % (2-11); NEUTROPHILS 67.3 % (40-80); PLATELET COUNT 206 10x3/uL (130-400); RBC 4.62 10x6/uL (4.00-5.40); RDW 14.1 % (11.5-14.5); WBC 6.6 10x3/uL (4.8-10.8)
[2019-07-28 06:55] VITALS: BP 120/76; BMI 30.5
--- NOTE | 2019-07-28 07:48 | NUR ---
ANESTHESIA TO START IV
--- NOTE | 2019-07-28 07:51 | NUR ---
DR MITCHELL NOTIFIED AND REVIEWED PT'S BEHAVIOR AND ASSESSMENT RESULTS. PT IS A LOW RISK. RESOURCES GIVEN AND SHE VERBALIZES UNDERSTANDING.
--- NOTE | 2019-07-28 09:50 | NUR ---
PLASMA BLADE USED ON SETTING 6/8. CAUTERY PAD PLACED ON RIGHT THIGH LOT #[id number] EXP. 12/23/2020
--- NOTE | 2019-07-28 12:11 | NUR ---
1140 PT AROUSABLE, OPA DISCONTINUED.
[2019-07-28 12:22] VITALS: BP 153/92
--- NOTE | 2019-07-28 15:58 | MORECARE ---
CASE MANAGEMENT DISCHARGE SUMMARY PATIENT: CHAPINCITO PHILLIPS UNIT: [id number] ADM DATE: 07/28/19 AGE: 58 : 62 SEX: F ROOM/BED: D.1210 AUTHOR: ADELA SIMS PHYSICIAN: REFERRING PHYSICIAN: ADAM SOTO DO DATE OF SERVICE: 07/28/19 Discharge Plan Patient Name: CHAPINCITO PHILLIPS Facility: [facility]:[place] : 1960 Planned Disposition: Anticipated Discharge Date: Discharge Date: Expected LOS: 0 Initial Reviewer: [email or web address] Initial Review Date: 07/28/2019 Generated: 07/28/19 4:58 pm Patient Name: CHAPINCITO PHILLIPS Page [id number] at 1558 All edits/amendments must be made on the electronic document DICTATION DATE: 07/28/191557 STRIKE ON MACHINE OPERATOR: ARABELLA 07/28/19 1558 RPT#: [id number] DC DATE: STATUS: ADM IN [facility] [address] [place] [address] END OF REPORT
[2019-07-28 17:08] VITALS: Ht 165.1 cm; Wt 81.8 kg
--- NOTE | 2019-07-28 20:00 | NUR ---
ALERT RESTING IN BED, CPM IN USE, DENIES PAIN OR NEEDS AT THIS TIME, SEE SHIFT ASSESSMENT, CALL LIGHT IN REACH, INSTRUCTED TO USE IS 5-10 TIMES PER HR WHILE AWAKE
[2019-07-28 20:20] VITALS: BP 116/69
[2019-07-29] VITALS: BP 106/68
[2019-07-29 04:00] VITALS: BP 135/74
[2019-07-29 07:40] LABS: BASOPHILS 0.1 % (0-2); EOSINOPHILS 0.2 % (0-7); HEMATOCRIT 33.5 % (36.0-48.0); HEMOGLOBIN 10.5 g/dL (12-16); IMMATURE GRANULOCYTES 0.2 % (0-5); LYMPHOCYTES 15.4 % (15-50); MCH 29.9 pg (26.0-34.0); MCHC 31.3 g/dL (31.0-37.0); MCV 95.4 fL (80.0-100.0); MEAN PLATELET VOLUME 10.9 fL (7.4-10.4); MONOCYTES 7.8 % (2-11); NEUTROPHILS 76.3 % (40-80); PLATELET COUNT 195 10x3/uL (130-400); RBC 3.51 10x6/uL (4.00-5.40); RDW 14.3 % (11.5-14.5); WBC 9.8 10x3/uL (4.8-10.8)
[2019-07-29 07:48] VITALS: BP 113/56
[2019-07-29 07:59] LABS: ANION GAP 8.6 mmol/L (8-16); CALCIUM 7.7 mg/dL (8.5-10.1); CARBON DIOXIDE 30.2 mmol/L (21.0-32.0); POTASSIUM - SERUM 3.8 mmol/L (3.5-5.1)
--- NOTE | 2019-07-29 09:32 | OP ---
PATIENT NAME: CHAPINCITO PHILLIPS MEDICAL RECORD: [id number] :62 LOCATION:D. D.1210 ADMISSION DATE:07/28/19 SURGEON: KODAK SOTO DO DATE OF OPERATION: 07/28/2019 PROCEDURE PERFORMED: Left total knee arthroplasty. PREOPERATIVE DIAGNOSIS: Left knee osteoarthritis. POSTOPERATIVE DIAGNOSIS: Left knee osteoarthritis. INDICATIONS: Ms. Phillips is a 58-year-old female who had a left patellar fracture, over a year ago, 18 months maybe. 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 I saw her after the fact and did a knee scope with lysis of adhesions and manipulation, she got her knee range of motion back, but she had severe osteoarthritis in the knee on the scope and she wanted something done surgically. She tried all manner of nonoperative treatment for the knee including injections, physical therapy to no avail. She was aware of the risk of the surgery including infection, bleeding, fracture, damage to nerves and vessels, continued knee pain, arthrofibrosis of the knee due to her history, continued pain, failure of implants, blood clots, and even and she signed a consent. SURGEON: Kodak Soto DO DESCRIPTION OF PROCEDURE: The patient was given a block by anesthesia in the preoperative area, taken to the operative suite, laid in supine position, given general anesthetic. LMA was placed. She was given 2 grams Ancef and 80 mg gentamicin and a gram of TXA preoperatively. The left lower extremity was then prepped and draped in sterile fashion. A timeout was performed and everyone was in agreement with the correct side, site, patient and procedure. I then marked out the incision over the old incision on her knee from the patellar fracture and went down to the capsule, then through a medial parapatellar approach, opened the knee and everted the patella. It was quite scarred and I milled it down to fit knee in prosthesis or poly. The knee was then flexed and the femur was exposed. ACL was removed. Femoral canal was entered and the distal femur was cut through the intramedullary guide. Once that was completed, the tibia was exposed and the proximal tibia was cut. I then removed the menisci about bringing the knee into extension and coagulate any vessels that were bleeding throughout the procedure with Aquamantys. We then flexed up the knee and sized the femur to be 62.5. A 4-in-1 cutting block was then put on and once 4-in-1 cutting block was put on the susi wing was used to ensure there was no notching, it was then cut. We then removed the bone, put the trial on and ranged the knee with a tibial tray floated in and marked the rotation for that. The drill holes were then put through lug holes in the femur and for the patella. The tibia was then exposed and sized to be a 63, 63 was drilled and punched and extra hole was put in the tibia. The cement was then mixed, placed in the tibia and on the implant, impacted in place. Excess cement was removed. The femur was then impacted on, knee brought to extension with a 12 poly in between and the patella was irrigated and curetted and dried out and then cement placed on the patella and on the implant and squeezed on and held into place with cement dried, we then put the 10% povidone-iodine with 500 mL of normal saline solution in the knee and let it sit for 3 minutes and irrigated out with more than a liter of normal saline. By that the cement had dried and we trialed up to a 16 poly, 16 fit the best and had good medial and lateral stability in OPERATIVE REPORT [id number] CHAPINCITO PHILLIPS flexion and extension. We then put that in with anterior stabilized E poly and locked it into place. I then put in Kathie and vancomycin and tobramycin powder. We then closed the capsule with the assistance of Brent Palacios, certified surgical entry level assistant manager with a [id number] fashion with #1 Vicryls. He then closed the skin with 2-0 Vicryl in an inverted interrupted fashion and a ZipLine was placed on the knee. Adaptic, 4 x 4s, ABD, Webril, Jarett wrap and GIL hose stocking were placed on the knee. She was then awakened and taken to recovery in stable condition. Blood loss was approximately 250 mL. COMPLICATIONS: None. TRANSINT:[id number] Voice Confirmation ID: [id number] DOCUMENT ID: [id number] KODAK SOTO DO at 0932 CC: [id number] DICTATION DATE: 07/28/19 1111 ROCK SINGER: 07/28/19 1254 ADM IN [id number] [place] [address]
--- NOTE | 2019-07-29 10:37 | NUR ---
PATIENT AWAKE AND ALERT WATCHING TV, DENIES ANY NEEDS AT THIS TIMEK, C/L AND FLUIDS IN REACH.
--- NOTE | 2019-07-29 11:54 | NUR ---
UP IN CHAIR WATCHING TV, AWAKE AND ALERT, DENIES ANY NEEDS AT THIS TIME, CHAIR ALARM ON, FALL PRECAUTIONS IN PLACE, C/L AND FLUIDS IN REACH.
[2019-07-29 13:08] VITALS: BP 104/66
--- NOTE | 2019-07-29 16:00 | NUR ---
AWAKE AND ALERT WATCHING TV, HELPED TO BEDSIDE COMMODE, DENIES ANY OTHER NEEDS AT THIS TIME, C/L AND FLUIDS IN REACH.
[2019-07-29 16:30] VITALS: BP 118/76
--- NOTE | 2019-07-29 17:40 | MORECARE ---
CASE MANAGEMENT DISCHARGE SUMMARY PATIENT: CHAPINCITO PHILLIPS UNIT: [id number] ADM DATE: 07/28/19 AGE: 58 : 62 SEX: F ROOM/BED: D.1210 AUTHOR: ADELA SIMS PHYSICIAN: REFERRING PHYSICIAN: ADAM SOTO DO DATE OF SERVICE: 07/29/19 Discharge Plan Patient Name: CHAPINCITO PHILLIPS [facility] [facility] 1960 Planned Disposition: Anticipated Discharge Date: Discharge Date: Expected LOS: 0 Initial Reviewer: [email or web address] Initial Review Date: 07/28/2019 Generated: 07/29/19 6:39 pm Last DP export: 07/28/19 2:58 p Patient Name: CHAPINCITO PHILLIPS Page [id number] at 1740 All edits/amendments must be made on the electronic document DICTATION DATE: 07/29/191738 COMPLAINT COORDINATOR: ARABELLA 07/29/19 173 RPT#: [id number] DC DATE: STATUS: ADM IN [facility] [address] [place] [address] END OF REPORT
[2019-07-29 20:00] VITALS: BP 130/54
--- NOTE | 2019-07-29 20:00 | NUR ---
ALERT RESTING IN BED CPM IN USE, DENIES PAIN OR NEEDS AT THIS TIME, SEE SHIFT ASSESSMENT, CALL LIGHT IN REACH
--- NOTE | 2019-07-29 22:45 | NUR ---
MIPLEX DRESSING TO LEFT KNEE CHANGED PER PT REQUEST, STATES DR SAID TO CHANGE IT TONIGHT SO COULD SEE IF STILL BLEEDING IN MORNING MAY HAVE TO PUT IN DRAIN
[2019-07-30] VITALS: BP 130/75
[2019-07-30 04:00] VITALS: BP 133/72
--- NOTE | 2019-07-30 07:15 | NUR ---
PT RESTING QUIETLY WITH EYES CLOSED. RESP EVEN AND UNLABORED. PT AWAKENS SPONTANEOUSLY. REPORTS PAIN 2/10 AT THIS TIME. IV TO RIGHT HAND SALINE LOC'D AT THIS TIME. GOOD BLOOD RETURN, EASILY FLUSHES. DRESSING C/D/I TO LEFT LOWER EXTREMITY. CPM IN PLACE, NICK WELL. PPPX 4, ABLE TO MOVE EXTREMITY. ASSISTED PT TO BSC AND BACK TO BED. PT NICK WELL. DENIES FURTHER NEEDS AT THIS TIME. CL WITHIN REACH. ENCOURAGED TO CALL WITH NEEDS.
[2019-07-30 08:05] VITALS: BP 140/85
--- NOTE | 2019-07-30 08:10 | NUR ---
PT SITTING UP IN BED EATING BREAKFAST. NO ACUTE DISTRESS NOTED. NO NEEDS VOICED AT THIS TIME. CL WITHIN REACH. ENCOURAGED TO CALL WITH NEEDS.
--- NOTE | 2019-07-30 08:40 | NUR ---
CPM REMOVED AT THIS TIME. AM MEDICATIONS ADMINISTERED WITH PAIN MEDICATIONS AT THIS TIME. CL WITHIN REACH. ENCOURAGED TO CALL WITH NEEDS.
--- NOTE | 2019-07-30 09:11 | NUR ---
PT AMBULATING IN HALLWAY WITH WALKER WITH PT.
--- NOTE | 2019-07-30 09:33 | NUR ---
URINE SAMPLE OBTAINED PER MD ORDERS. CONTACTED LAB FOR READING TUTOR. SPOKE WITH JULY
[2019-07-30 10:17] LABS: BILIRUBIN NEGATIVE (NEGATIVE); GLUCOSE NEGATIVE (NEGATIVE); KETONE NEGATIVE (NEGATIVE); NITRITE NEGATIVE (NEGATIVE); SPECIFIC GRAVITY 1.015 (1.005-1.020); UROBILINOGEN NORMAL (NORMAL)
--- NOTE | 2019-07-30 10:29 | NUR ---
PT RESTING WITH EYES CLOSED. RESP EVEN AND UNLABORED. CL WITHIN REACH.
--- NOTE | 2019-07-30 11:24 | NUR ---
RADIOLOGY HERE FOR PORTABLE XRAY. PT AWAKEN. NO ACUTE DISTRESS NOTED. CL WITHIN REACH. ENCOURAGED TO CALL WITH NEEDS.
[2019-07-30 12:08] LABS: BASOPHILS 0.1 % (0-2); HEMATOCRIT 33.9 % (36.0-48.0); HEMOGLOBIN 10.9 g/dL (12-16); IMMATURE GRANULOCYTES 0.1 % (0-5); LYMPHOCYTES 19.1 % (15-50); MCH 30.5 pg (26.0-34.0); MCHC 32.2 g/dL (31.0-37.0); MEAN PLATELET VOLUME 10.2 fL (7.4-10.4); MONOCYTES 8.2 % (2-11); NEUTROPHILS 71.5 % (40-80); PLATELET COUNT 166 10x3/uL (130-400); RBC 3.57 10x6/uL (4.00-5.40); RDW 14.1 % (11.5-14.5); WBC 8.3 10x3/uL (4.8-10.8)
[2019-07-30 12:17] LABS: ANION GAP 5.3 mmol/L (8-16); CALCIUM 8.2 mg/dL (8.5-10.1); CARBON DIOXIDE 34.1 mmol/L (21.0-32.0); POTASSIUM - SERUM 3.4 mmol/L (3.5-5.1)
[2019-07-30 12:41] VITALS: BP 138/83
--- NOTE | 2019-07-30 12:42 | NUR ---
PT SITTING UP IN BED WITH FAMILY AT BEDSIDE EATING LUNCH. REPORTS PAIN 3/10 AT THIS TIME. LUNCH CONSUMED. DENIES FURTHER NEEDS AT THIS TIME. CL WITHIN REACH. ENCOURAGED TO CALL WITH NEEDS.
--- NOTE | 2019-07-30 13:31 | NUR ---
PT AMBULATING IN HALLWAY WITH PT. PT NICK BLACK
--- NOTE | 2019-07-30 14:25 | NUR ---
PT RESTING IN BED WITH EYES CLOSED. RESP EVEN AND UNLABORED. CL WITHIN REACH. ENCOURAGED TO CALL WITH NEEDS.
--- NOTE | 2019-07-30 15:17 | NUR ---
ASSISTED PT UP TO BSC AND BACK TO SOB. PT BATHING SELF. NICK WELL. DENIES FURTHER NEEDS AT THIS TIME. CL WITHIN REACH. ENCOURAGED TO CALL WITH NEEDS.
[2019-07-30 16:19] VITALS: BP 121/71
--- NOTE | 2019-07-30 16:21 | NUR ---
PT RESTING IN BED WATCHING TV. RESP EVEN AND UNLABORED. PT REPORTS PAIN 4/10 AT THIS TIME. DENIES FURTHER NEEDS AT THIS TIME. CL WITHIN REACH. ENCOURAGED TO CALL WITH NEEDS.
--- NOTE | 2019-07-30 16:37 | NUR ---
OT NOTE: PT COMPLETED SELF BATHING TASKS AT EOB WITH SBA. PT REQUIRED MAX A WITH BACK HYGIENE. PT COMPLETED ADL MOB WITH SPV. PT COMPLETED DYNAMIC STANDING WHILE COMPLETING ADLS WITH SPV/SBA. [phone] THANK YOU, JED HICKS
--- NOTE | 2019-07-30 17:08 | NUR ---
PT CPM PLACED TO LEFT LOWER EXT. PT NICK WELL. VOICES PAIN 7/10 AT THIS TIME. PAIN MEDICATION TO BE ADMINISTERED PER MD ORDERS.
--- NOTE | 2019-07-30 17:13 | MORECARE ---
CASE MANAGEMENT DISCHARGE SUMMARY PATIENT: CHAPINCITO PHILLIPS UNIT: [id number] ADM DATE: 07/28/19 AGE: 58 : 62 SEX: F ROOM/BED: D.1210 AUTHOR: ADELA SIMS PHYSICIAN: REFERRING PHYSICIAN: ADAM SOTO DO DATE OF SERVICE: 07/30/19 Discharge Plan Patient Name: CHAPINCITO PHILLIPS [facility] [facility] 1960 Planned Disposition: Home Anticipated Discharge Date: Discharge Date: Expected LOS: 0 Initial Reviewer: [email or web address] Initial Review Date: 07/28/2019 Generated: 07/30/19 6:12 pm DCPIA - Discharge Planning Initial Assessment Updated by [email or web address]: Caryn Khan on 07/30/19 5:09 pm * Is the patient Alert and Oriented? Yes * How many steps to enter\exit or inside your home? * PCP KRYSTLE Hairston APN * [facility] * Preadmission Environment Home with Family * ADLs Independent * Other Equipment WALKER, BSC, CPM, - [facility] TO DELIVER UPON DISCHARGE * List name and contact numbers for known caregivers / representatives who currently or will assist patient after discharge: MAYA PRESTON - [phone] * Verbal permission to speak to the caregivers and representatives has been obtained from the patient. Yes * Community resources currently utilized None * Additional services required to return to the preadmission environment? No * Can the patient safely return to the preadmission environment? Yes * Has this patient been hospitalized within the prior 30 days at any hospital? No Last DP export: 07/29/19 4:40 p Patient Name: CHAPINCITO PHILLIPS Page [id number] at 1713 All edits/amendments must be made on the electronic document DICTATION DATE: 07/30/191711 DOOR TENDER: ARABELLA 07/30/191711 RPT#: [id number] DC DATE: STATUS: ADM IN [facility] [address] [place] [address] END OF REPORT
--- NOTE | 2019-07-30 17:20 | NUR ---
PT CPM PLACED TO LEFT LOWER EXTREMITY. PT REPORTS PAIN 8/10 AT THIS TIME. PAIN MEDICATION ADMINISTERED PER MD ORDERS. CL WITHIN REACH. ENCOURAGED TO CALL WITH NEEDS.
--- NOTE | 2019-07-30 17:26 | MORECARE ---
CASE MANAGEMENT DISCHARGE SUMMARY PATIENT: CHAPINCITO PHILLIPS UNIT: [id number] ADM DATE: 07/28/19 AGE: 58 : 62 SEX: F ROOM/BED: D.1210 AUTHOR: BETHANY,DOC PHYSICIAN: REFERRING PHYSICIAN: ADAM SOTO DO DATE OF SERVICE: 07/30/19 Discharge Plan Patient Name: CHAPINCITO PHILLIPS Facility: [facility]:[place] : 1960 Planned Disposition: Home Anticipated Discharge Date: Discharge Date: Expected LOS: 0 Initial Reviewer: [email or web address] Initial Review Date: 07/28/2019 Generated: 07/30/19 6:26 pm Comments DCP- Discharge Planning Updated by [email or web address]: Caryn Khan on 07/30/19 4:[address] Patient is scheduled for Outpatient Therapy @ [facility] SaturdayAugust 02 @ 1pm and to register @ test desk trouble locator around 1245. CM will continue to follow and assist as needed with discharge planning / needs. DCP- Discharge Planning Updated by [email or web address]: Caryn Khan on 07/30/19 4:[address] Patient Name: CHAPINCITO PHILLIPS Admission Status: Elective Accout number: [id number] Admission Date: 07-28-2019 : 1960 Admission Diagnosis:UNILATERAL PRIMARY OSTEOARTHRITIS, LEFT KNEE Attending: ADAM SOTO Current LOS: 2 Anticipated DC Date: Planned Disposition: Home Primary Insurance: [facility] MA[facility]ED MEDICA[facility] Discharge Planning Comments: CM met with patient to complete initial dc planning assessment. CM educated patient on the CM role and verbal consent given by patient to complete assessment. Patient lives at home with family. Patient is independent. At discharge patient plans to return home and feels this is a safe discharge. CM discussed availability of home health, rehab services, and medical equipment. Patient states that [employer] is suppose to deliver CPM, BSC, and walker when discharged. HARPREET signed for [facility] Outpatient therapy. Patient will have family to transport home. Patient denied known discharge needs at this time. CM will continue to follow and will assist as needed with dc plans/needs. Visual Inspector: Caryn Khan DCPIA - Discharge Planning Initial Assessment Updated by [email or web address]: Caryn Khan on 07/30/19 5:09 pm * Is the patient Alert and Oriented? Yes * How many steps to enter\exit or inside your home? * PCP KRYSTLE Hairston APN * [facility] * Preadmission Environment Home with Family * ADLs Independent * Other Equipment WALKER, BSC, CPM, - [facility] TO DELIVER UPON DISCHARGE * List name and contact numbers for known caregivers / representatives who currently or will assist patient after discharge: MAYA PRESTON [phone] * Verbal permission to speak to the caregivers and representatives has been obtained from the patient. Yes * Community resources currently utilized None * Additional services required to return to the preadmission environment? No * Can the patient safely return to the preadmission environment? Yes * Has this patient been hospitalized within the prior 30 days at any hospital? No Last DP export: 07/30/19 4:13 p Patient Name: CHAPINCITO PHILLIPS Page [id number] at 1726 All edits/amendments must be made on the electronic document DICTATION DATE: 07/30/191725 PLANT EQUIPMENT ENGINEER: ARABELLA 07/30/191725 RPT#: [id number] DC DATE: STATUS: ADM IN [facility] [address] [place] [address] END OF REPORT
[2019-07-30 20:00] VITALS: BP 121/81
--- NOTE | 2019-07-30 20:00 | NUR ---
ALERT RESTING IN BED, CPM IN USE, DENIES PAIN OR NEEDS AT THIS TIME, SEE ASSESMENT, CALL LIGHT IN REACH
[2019-07-31 04:00] VITALS: BP 96/57
[2019-07-31 07:16] VITALS: BP 92/54
--- NOTE | 2019-07-31 07:40 | NUR ---
AWAKE AND ALERT. ORIENTED X3. NO C/O AT THIS TIME. LUNGS ARE CLEAR BILATERALLY, OCCASSIONAL DRY COUGH NOTED. ENCOURAGED TO USE IS INSTRUCTED. SKIN IS INTACT WITHOUT REDNESS EXCEPT INCISION TO LEFT KNEE WHICH HAS A DRY INTACT DRESSING IN PLACE. NO IV ACCESS AT THIS TIME. SCD'S, GIL'S, AND CPM IN PLACE. DENIES NEEDS.
[2019-07-31 07:53] LABS: ANION GAP 7.4 mmol/L (8-16); CALCIUM 8.3 mg/dL (8.5-10.1); CARBON DIOXIDE 35.4 mmol/L (21.0-32.0); POTASSIUM - SERUM 3.8 mmol/L (3.5-5.1)
[2019-07-31 08:09] LABS: BASOPHILS 0.1 % (0-2); EOSINOPHILS 1.6 % (0-7); HEMATOCRIT 32.7 % (36.0-48.0); HEMOGLOBIN 10.3 g/dL (12-16); IMMATURE GRANULOCYTES 0.1 % (0-5); LYMPHOCYTES 17.2 % (15-50); MCH 30.2 pg (26.0-34.0); MCHC 31.5 g/dL (31.0-37.0); MCV 95.9 fL (80.0-100.0); MEAN PLATELET VOLUME 10.6 fL (7.4-10.4); MONOCYTES 8.4 % (2-11); NEUTROPHILS 72.6 % (40-80); PLATELET COUNT 178 10x3/uL (130-400); RBC 3.41 10x6/uL (4.00-5.40); RDW 14.1 % (11.5-14.5); WBC 8.9 10x3/uL (4.8-10.8)
--- NOTE | 2019-07-31 11:05 | NUR ---
UP TO SHOWER WITH SET UP ASSISTANCE. LINENS CHANGED PER STAFF.
--- NOTE | 2019-07-31 12:04 | NUR ---
UP TO BR WITH RW SBA. HAD LARGE FORMED STOOL. SKIN CARE PER SELF.
[2019-07-31 12:06] VITALS: BP 123/76
--- NOTE | 2019-07-31 12:07 | MORECARE ---
CASE MANAGEMENT DISCHARGE SUMMARY PATIENT: CHAPINCITO PHILLIPS UNIT: [id number] ADM DATE: 07/28/19 AGE: 58 : 62 SEX: F ROOM/BED: D.1210 AUTHOR: ADELA SIMS PHYSICIAN: REFERRING PHYSICIAN: ADAM SOTO DO DATE OF SERVICE: 07/31/19 Discharge Plan Patient Name: CHAPINCITO PHILLIPS Facility: [facility]:[place] : 1960 Planned Disposition: Home Anticipated Discharge Date: 07/31/19 Discharge Date: Expected LOS: 3 Initial Reviewer: [email or web address] Initial Review Date: 07/28/2019 Generated: 07/31/19 1:06 pm DCP- Discharge Planning Updated by [email or web address]: Caryn Khan on 07/30/19 4:[address] Patient is scheduled for Outpatient Therapy @ [facility] SaturdayAugust 02 @ 1pm and to register @ front end engineer around 1245. CM will continue to follow and assist as needed with discharge planning / needs. DCP- Discharge Planning Updated by [email or web address]: Caryn Khan on 07/30/19 4:[address] Patient Name: CHAPINCITO PHILLIPS Admission Status: Elective Accout number: [id number] Admission Date: 07-28-2019 : 1960 Admission Diagnosis:UNILATERAL PRIMARY OSTEOARTHRITIS, LEFT KNEE Attending: ADAM SOTO Current LOS: 2 Anticipated DC Date: Planned Disposition: Home Primary Insurance: [facility] MANAGED MEDICAID Discharge Planning Comments: CM met with patient to complete initial dc planning assessment. CM educated patient on the CM role and verbal consent given by patient to complete assessment. Patient lives at home with family. Patient is independent. At discharge patient plans to return home and feels this is a safe discharge. CM discussed availability of home health, rehab services, and medical equipment. Patient states that [employer] is suppose to deliver CPM, BSC, and walker when discharged. HARPREET signed for [facility] Outpatient therapy. Patient will have family to transport home. Patient denied known discharge needs at this time. CM will continue to follow and will assist as needed with dc plans/needs. Senior Executive Assistant: Caryn Khan DCPIA - Discharge Planning Initial Assessment Updated by [email or web address]: Caryn Khan on 07/30/19 5:09 pm * Is the patient Alert and Oriented? Yes * How many steps to enter\exit or inside your home? * PCP KRYSTLE Hairston APN * [facility] * Preadmission Environment Home with Family * ADLs Independent * Other Equipment WALKER, BSC, CPM, - [facility] [facility] TO DELIVER UPON DISCHARGE * List name and contact numbers for known caregivers / representatives who currently or will assist patient after discharge: MAYA KARY [phone] * Verbal permission to speak to the caregivers and representatives has been obtained from the patient. Yes * Community resources currently utilized None * Additional services required to return to the preadmission environment? No * Can the patient safely return to the preadmission environment? Yes * Has this patient been hospitalized within the prior 30 days at any hospital? No Last DP export: 07/30/19 4:26 p Patient Name: CHAPINCITO PHILLIPS Page 60028 at 1207 All edits/amendments must be made on the electronic document DICTATION DATE: 07/31/19 1206 [employer]ODU[employer] MACHINE OPERATOR: ARABELLA 07/31/19 1206 RPT#: [id number] DC DATE: STATUS: ADM IN [facility] [address] [place] [address] END OF REPORT
[2019-07-31] MEDS ORDERED: OXYCODONE HCL5 M1 PO (14:10)
[2019-07-31] MEDS ORDERED: KEFLEX500 MG PO (14:11)
[2019-07-31] MEDS ORDERED: BAYER CHEWABLE81 MG PO (14:11)
[2019-07-31] MEDS ORDERED: VISTARIL50 MG PO (14:11)
--- NOTE | 2019-07-31 14:58 | NUR ---
DISCHARGED TO HOME WITH FAMILY AMBULATORY. DISCHARGE INSTRUCTIONS GIVEN BOTH VERBALLY AND WRITTEN. ALL QUESTIONS ANSWERED. PATIENT VERBALIZED UNDERSTANDING OF SAME. DRESSING CHANGED PRIOR TO DISCHARGE. INCISION IS CLEAN DRY AND WELL APPROXIMATED WITH ZIP TIES IN PLACE. 4 EXTRA DRESSINGS SENT HOME WITH PATIENT. ALL BELONGINGS WITH PATIENT. NEEDED PRESCRIPTIONS GIVEN TO PATIENT.
--- NOTE | 2019-08-03 09:32 | MORECARE ---
CASE MANAGEMENT DISCHARGE SUMMARY PATIENT: CHAPINCITO PHILLIPS UNIT: [id number] ADM DATE: 07/28/19 AGE: 58 : 62 SEX: F ROOM/BED: D.1210 AUTHOR: BETHANY,DOC PHYSICIAN: REFERRING PHYSICIAN: ADAM SOTO DO DATE OF SERVICE: 08/03/19 Discharge Plan Patient Name: CHAPINCITO PHILLIPS Facility: [facility]:[place] : 1960 Planned Disposition: Home Anticipated Discharge Date: 07/31/19 Discharge Date: 07/31/2019 Expected LOS: 3 Initial Reviewer: [email or web address] Initial Review Date: 07/28/2019 Generated: 08/03/19 10:31 am DCP- Discharge Planning Updated by [email or web address]: Caryn Khan on 07/30/19 4:[address] Patient is scheduled for Outpatient Therapy @ [facility] SaturdayAugust 02 @ 1pm and to register @ front end ui developer around 1245. CM will continue to follow and assist as needed with discharge planning / needs. DCP- Discharge Planning Updated by [email or web address]: Caryn Khan on 07/30/19 4:[address] Patient Name: CHAPINCITO PHILLIPS Admission Status: Elective Accout number: [id number] Admission Date: 07-28-2019 : 1960 Admission Diagnosis:UNILATERAL PRIMARY OSTEOARTHRITIS, LEFT KNEE Attending: ADAM SOTO Current LOS: 2 Anticipated DC Date: Planned Disposition: Home Primary Insurance: [facility] MANAGED MEDICAID Discharge Planning Comments: CM met with patient to complete initial dc planning assessment. CM educated patient on the CM role and verbal consent given by patient to complete assessment. Patient lives at home with family. Patient is independent. At discharge patient plans to return home and feels this is a safe discharge. CM discussed availability of home health, rehab services, and medical equipment. Patient states that [employer] is suppose to deliver CPM, BSC, and walker when discharged. HARPREET signed for [facility] Outpatient therapy. Patient will have family to transport home. Patient denied known discharge needs at this time. CM will continue to follow and will assist as needed with dc plans/needs. Sales Order Processor: Caryn Khan DCPIA - Discharge Planning Initial Assessment Updated by [email or web address]: Caryn Khan on 07/30/19 5:09 pm * Is the patient Alert and Oriented? Yes * How many steps to enter\exit or inside your home? * PCP [facility] * [facility] * Preadmission Environment Home with Family * ADLs Independent * Other Equipment WALKER, BSC, CPM, - [employer] [facility] TO DELIVER UPON DISCHARGE * List name and contact numbers for known caregivers / representatives who currently or will assist patient after discharge: MAYA KARY [phone] * Verbal permission to speak to the caregivers and representatives has been obtained from the patient. Yes * Community resources currently utilized None * Additional services required to return to the preadmission environment? No * Can the patient safely return to the preadmission environment? Yes * Has this patient been hospitalized within the prior 30 days at any hospital? No Last DP export: 07/31/19 11:07 a Patient Name: CHAPINCITO PHILLIPS Page [id number] at 0932 All edits/amendments must be made on the electronic document DICTATION DATE: 08/03/19930 CONGREGATIONAL CARE PASTOR: ARABELLA 08/03/19930 RPT#: [id number] DC DATE:07/31/19 STATUS: DIS IN [facility] [address] [place] [address] END OF REPORT
== END 2019-07-31 15:16 | disposition home or self-care (01) | DRG 470 ==
LOC: D.SDCHOLD 07-28 06:30 → D.M3 07-28 06:30 → D.SDCHOLD 07-28 08:30 → D.M3 07-28 11:46
PROVIDERS: Family Medicine; ADMIT Orthopaedic Surgery; ATTEND Orthopaedic Surgery
PROC: 0SRD0J9 Replacement of Left Knee Joint with Synthetic Substitute, Cemented, Open Approach (ICD-10-PCS; principal; 2019-07-28 08:30)
DX: M17.12 Unilateral primary osteoarthritis, left knee (principal); F41.9 Anxiety disorder, unspecified; K21.9 Gastro-esophageal reflux disease without esophagitis

== ENCOUNTER → 2019-06-18 17:37 | Outpatient (CLI) | payer OTHER ==
[2019-05-08 13:33] VITALS: BMI 30.3
== END | disposition home or self-care (01) ==
LOC: D.LABREF 17:37
PROVIDERS: ATTEND Orthopaedic Surgery
DX: M17.12 Unilateral primary osteoarthritis, left knee (principal)